=== PATIENT | female | born 1980 | race Two or more races ===

== ENCOUNTER 2020-09-21 05:28 | Emergency (ER) | payer OTHER ==
[~2020-09-21] VITALS: Ht 167.6 cm; Wt 73.5 kg
== END 2020-09-21 14:14 | disposition home or self-care (01) ==
LOC: ER 05:28
DX: O20.8 Other hemorrhage in early pregnancy (principal); O99.011 Anemia complicating pregnancy, first trimester; D64.89 Other specified anemias; Z3A.01 Less than 8 weeks gestation of pregnancy; Z03.818 Encounter for observation for suspected exposure to other biological agents ruled out